=== PATIENT | female | born 1995 | race Caucasian/White ===

== ENCOUNTER 2021-11-30 17:08 | Day surgery (SDC) | payer OTHER ==
[2021-11-30 19:05] VITALS: BMI 26.7
[2021-11-30] MEDS ORDERED: hydrALAZINE 20 MG/ML VIAL SLOW IVP PRN (19:53)
== END 2021-11-30 21:31 | disposition home or self-care (01) ==
LOC: CSHLD/OP 17:08
PROVIDERS: ATTEND Obstetrics & Gynecology
DX: O47.1 False labor at or after 37 completed weeks of gestation (principal); O36.5930 Maternal care for other known or suspected poor fetal growth, third trimester, not applicable or unspecified; O43.193 Other malformation of placenta, third trimester; Z3A.37 37 weeks gestation of pregnancy
CPT/HCPCS: 99283

== ENCOUNTER 2021-12-09 05:03 | Inpatient (IN) | payer OTHER ==
[2021-12-09 05:31] VITALS: BMI 26.7
[2021-12-09] MEDS ORDERED: Promethazine HCl 25 MG/ML VIAL IM PRN ×3 (05:37→17:50)
[2021-12-09] MEDS ORDERED: Ibuprofen 800 MG TAB PO PRN (05:37)
[2021-12-09] MEDS ORDERED: hydrALAZINE 20 MG/ML VIAL SLOW IVP PRN ×2 (05:37→17:50)
[2021-12-09] MEDS ORDERED: Misoprostol 200 MCG TAB PR PRN (05:37)
[2021-12-09] MEDS ORDERED: Lidocaine 1% (PF) 30 ML VIAL SC PRN (05:37)
[2021-12-09] MEDS ORDERED: Ondansetron PF 4 MG/2 ML Vial IVP PRN ×3 (05:37→17:50)
[2021-12-09] MEDS ORDERED: NS w/ Oxytocin 30 units 500 ML IV SCH ×2 (05:45)
[2021-12-09] MEDS ORDERED: Fentanyl 2 mcg/Bup 0.1% Cadd 100 ML ONE (06:19)
[2021-12-09 06:23] LABS: Hemoglobin 12.2 g/dL (12.0-15.5); Mean Corpuscular HGB CONC 34.9 g/dL (32.0-36.0); Mean Corpuscular Hemoglobin 32.3 pg (27.0-33.0); Mean Corpuscular Volume 92.6 fl (81.6-98.3); Mean Platelet Volume 10.1 fl (7.4-10.4); Platelet Count 194 10x3/uL (150-450); RBC Distribution Width 13.3 % (11.5-14.5); Red Blood Cell (RBC) Count 3.78 10x6/uL (3.90-5.03); White Blood Cell (WBC) Count 6.4 10x3/uL (3.5-10.5)
[2021-12-09] MEDS ORDERED: Fentanyl 100 MCG/2 ML VIAL ONE (06:33)
[2021-12-09] MEDS: Lactated Ringer's 1,000 ML IV SCH ×2 (06:44→20:11)
[2021-12-09 06:53] LABS: Hep B Surf Ag Non-Reactive S/CO (NonReactive)
[2021-12-09 06:55] LABS: Syphilis Antibody Nonreactive (Nonreactive); Syphilis Antibody Index 0.04 S/CO (<1.00 Non-Reactive)
[2021-12-09 07:02] LABS: HBSAg Index 0.18 S/CO (0-0.99)
[2021-12-09 07:11] LABS: SARS-CoV-2 NAA Rapid Test Not Detected (NotDetected)
[2021-12-09] MEDS ORDERED: ePHEDrine Sulfate 50 MG/10 ML VIAL SLOW IVP PRN (07:18)
[2021-12-09] MEDS ORDERED: Lactated Ringer's 500 ML IV PRN (07:18)
[2021-12-09] MEDS ORDERED: Moisturizing Cream (Eucerin) 113 GM JAR TOP PRN (07:18)
[2021-12-09] MEDS ORDERED: Acetaminophen 325 MG TAB PO PRN (07:18)
[2021-12-09] MEDS ORDERED: Naloxone HCl 0.4 mg/ml Vial IVP PRN ×2 (07:18)
[2021-12-09] MEDS ORDERED: diphenhydrAMINE 50 MG/ML VIAL IVP PRN (07:18)
[2021-12-09] MEDS ORDERED: Fentanyl 2 mcg/Bupivacaine 0.1% Cassette 100 ML EPIDURAL SCH (07:30)
[2021-12-09] MEDS ORDERED: Communication Order-Pharmacy FS SCH (07:30)
[2021-12-09] MEDS ORDERED: ceFAZolin 2 GM/Dextrose 50 ML IVPB ONE (10:02)
[2021-12-09] MEDS: Ibuprofen 800 MG TAB PO SCH (11:08)
[2021-12-09] MEDS ORDERED: Lidocaine 1% PF 10 ML AMP ONE (14:13)
[2021-12-09] MEDS ORDERED: Methylergonovine 0.2 MG/ML VIAL ONE (14:37)
[2021-12-09] MEDS ORDERED: diphenhydrAMINE 25 MG CAP PO PRN (17:50)
[2021-12-09] MEDS ORDERED: Lanolin Ointment 7 GM TUBE TOP PRN (17:50)
[2021-12-09] MEDS ORDERED: Bisacodyl 10 MG SUPP PR PRN (17:50)
[2021-12-09] MEDS ORDERED: Boostrix 0.5 ML (Tdap) VIAL IM ONE (17:50)
[2021-12-09] MEDS ORDERED: Preparation H Ointment 28 GM TUBE PR PRN (17:50)
[2021-12-09] MEDS ORDERED: Milk Of Magnesia 30 ML UDCUP PO PRN (17:50)
[2021-12-09] MEDS ORDERED: Benzocaine-Menthol 82.5 ML CAN TOP PRN (17:50)
[2021-12-09] MEDS ORDERED: Sodium Chloride 0.9% 500 ML IV SCH (18:30)
[2021-12-09] MEDS: Ferrous Sulfate 325 MG TAB PO SCH (20:45)
[2021-12-09] MEDS: HYDROcodone/Acetaminophen 5/325 mg Tablet PO PRN ×2 (20:53→21:54)
[2021-12-09] MEDS: Docusate 100 MG CAP PO SCH (20:53)
[2021-12-09] MEDS ORDERED: Ibuprofen 800 MG TAB PO SCH (22:00)
[2021-12-10] MEDS: HYDROcodone/Acetaminophen 5/325 mg Tablet PO PRN ×3 (05:21→13:36)
[2021-12-10] MEDS: Docusate 100 MG CAP PO SCH ×2 (08:40→21:30)
[2021-12-10] MEDS: Ibuprofen 800 MG TAB PO SCH ×3 (08:40→23:42)
[2021-12-10] MEDS: Prenatal Vitamin 1 TAB PO SCH (08:40)
[2021-12-10] MEDS: Ferrous Sulfate 325 MG TAB PO SCH ×2 (08:45→23:32)
[2021-12-10] MEDS ORDERED: Acetaminophen 500 MG TAB PO PRN (21:10)
[2021-12-11 07:46] VITALS: BP 100/60; TEMP 97.8
[2021-12-11] MEDS: Ibuprofen 800 MG TAB PO SCH (08:41)
[2021-12-11] MEDS: Prenatal Vitamin 1 TAB PO SCH (08:41)
[2021-12-11] MEDS: Docusate 100 MG CAP PO SCH (08:41)
[2021-12-11] MEDS: Ferrous Sulfate 325 MG TAB PO SCH (08:44)
[2021-12-11] MEDS: HYDROcodone/Acetaminophen 5/325 mg Tablet PO PRN (11:30)
== END 2021-12-11 12:40 | disposition home or self-care (01) | DRG 807 ==
LOC: CSHLD 05:03 → CSHPED 17:35
PROVIDERS: ADMIT Student in an Organized Health Care Education/Training Program; ATTEND Student in an Organized Health Care Education/Training Program
PROC: 10E0XZZ Delivery of Products of Conception, External Approach (ICD-10-PCS; principal; 2021-12-09)
PROC: 10907ZC Drainage of Amniotic Fluid, Therapeutic from Products of Conception, Via Natural or Artificial Opening (ICD-10-PCS; 2021-12-09)
DX: O43.193 Other malformation of placenta, third trimester (principal); Z37.0 Single live birth; Z3A.39 39 weeks gestation of pregnancy; Z20.822 Contact with and (suspected) exposure to COVID-19
CPT/HCPCS: 36415; 51702; 85027; 86780; 86850; 86900; 86901; 87340; J2210; J2405; J2590; J7030; J7120; U0002